=== PATIENT | female | born 1960 | race Caucasian/White ===

== ENCOUNTER 2023-04-08 10:13 | Outpatient (CLI) | payer MEDICAID ==
--- NOTE | 2023-04-09 09:51 | Mammography Report ---
BILATERAL DIGITAL SCREENING MAMMOGRAM 3D/2D: 04/08/2023 CLINICAL: Routine screening. Comparison is made to exam dated: 04/19/2009 mammogram - [facility]. There are scattered areas of fibroglandular density in both breasts (category b / 25%-50% glandular t issue). No significant masses, calcifications, or other findings are seen in either breast. There has been no significant interval change. IMPRESSION: NEGATIVE There is no mammographic evidence of malignancy. A 1 year screening mammogram is recommended. Based on the Tyrer Cuzick model (a risk assessment model) the patients lifetime risk is 3.8% and her 10 year risk is 1.5%. According to the ACR, ACS, and NCCN guidelines, an annual breast MRI exam ariella g with mammogram is recommended if the patients lifetime risk is 20% or greater. This exam was interpreted at Station ID: [id number]. NOTE: For mammograms, a report in lay terms will be sent to the patient. Approximately 15% of breast malignancies will not be visualized mammographically. In the management of a palpable breast mass, a negative mammogram must not discourage biopsy of a clinically suspicious lesion. Electronically Signed By: Rachna barcenas/leti:04/08/2023 16:18:37 letter sent: No_Letter ACR BI-RADS Category 1: Negative 3341F PARENCHYMAL PATTERN: (A) - The breast(s) demonstrate(s) scattered fibroglandular densities. BI-RADS CATEGORY: (1) - 1 Mammogram [id number] 1 year screening LATERALITY: (B)
== END 2023-04-08 10:14 | disposition home or self-care (01) ==
LOC: DI.N 10:13
PROVIDERS: ATTEND Nurse Practitioner
DX: Z12.31 Encounter for screening mammogram for malignant neoplasm of breast (principal)

== ENCOUNTER 2023-04-08 10:19 | Outpatient (CLI) | payer MEDICAID ==
[2023-04-08 12:19] LABS: BASOPHILS # (AUTO) 0.1 10^3/uL (0.0-0.1); BASOPHILS % (AUTO) 1.4 %; EOSINOPHILS # (AUTO) 0.2 10^3/uL (0.0-0.7); EOSINOPHILS % (AUTO) 2.4 %; HCT - HEMATOCRIT 45.8 % (37.0-47.0); HGB - HEMOGLOBIN 15.7 g/dL (12.0-16.0); LYMPHOCYTES # (AUTO) 2.5 10^3/uL (1.5-3.5); LYMPHOCYTES % (AUTO) 29.7 %; MEAN CORPUSCULAR HGB CONC 34.3 g/dL (32.0-36.0); MEAN CORPUSCULAR VOLUME 102.2 fL (81.0-99.0); MEAN PLATELET VOLUME 9.2 fL (7.9-10.8); MONOCYTES # (AUTO) 0.6 10^3/uL (0.0-1.0); MONOCYTES % (AUTO) 6.8 %; NEUTROPHILS % (AUTO) 59.2 %; PLT - PLATELET COUNT 252 10^3/uL (130-450); RED BLOOD COUNT 4.48 10^6/uL (4.20-5.40); RED CELL DISTRIBUTION WIDTH 13.2 % (12.0-15.0); WHITE BLOOD COUNT 8.4 x10^3/uL (4.8-10.8)
[2023-04-08 12:42] LABS: THYROID STIMULATING HORMONE 7.39 uIU/mL (0.34-5.60)
[2023-04-08 12:44] LABS: ALBUMIN/GLOBULIN RATIO 1.2 (1.0-2.2); ALKALINE PHOSPHATASE 69 IU/L (42-121); ALT ALANINE AMINOTRANSFERASE 16 IU/L (10-60); AST ASPARTATE AMINOTRANSFERASE 22 IU/L (10-42); BILIRUBIN,TOTAL 0.4 mg/dL (0.2-1.0); BUN - BLOOD UREA NITROGEN 21 mg/dL (6-20); CALCIUM 9.6 mg/dL (8.5-10.3); CARBON DIOXIDE - CO2 21 mmol/L (21-32); CHLORIDE 106 mmol/L (101-111); CHOL/HDL RATIO 4.3 (<4.4); CHOLESTEROL 207 mg/dL; GFR - MDRD 56 (>89); GLUCOSE 121 mg/dL (74-104); HDL CHOLESTEROL 48 mg/dL; LDL CHOLESTEROL,CALCULATED 113 mg/dL; LDL/HDL RATIO 2.4 (<4.4); SODIUM 133 mmol/L (135-145); TOTAL PROTEIN 7.4 g/dL (6.4-8.9); TRIGLYCERIDES 232 mg/dL (48-352); VLDL CHOLESTEROL 46 mg/dL
== END 2023-04-08 10:20 | disposition home or self-care (01) ==
LOC: LAB.N 10:19
PROVIDERS: ATTEND Nurse Practitioner
DX: I10 Essential (primary) hypertension (principal); Z13.220 Encounter for screening for lipoid disorders; Z12.11 Encounter for screening for malignant neoplasm of colon; R53.83 Other fatigue
CPT/HCPCS: 36415; 80053; 80061; 82607; 83721; 84439; 84443; 85025

== ENCOUNTER 2023-06-11 15:25 | Emergency (ER) | payer MEDICAID ==
[2023-06-11 15:38] VITALS: O2SAT 98
--- NOTE | 2023-06-11 16:25 | XRAY Report ---
PROCEDURE: Chest 2 View X-Ray INDICATIONS: cough with pain TECHNIQUE: 2 views of the chest were acquired. COMPARISON: None. FINDINGS: Surgical changes and devices: None. Lungs and pleura: No pleural effusions or pneumothorax. Linear scarring/atelectasis in lateral aspe ct of left lower lung field is seen. Mediastinum: Mediastinal contours appear normal. Heart size is normal. Bones and chest wall: No suspicious bony lesions. Overlying soft tissues appear unremarkable. IMPRESSION: Linear scarring/atelectasis in lateral aspect of left lower lung field. No focal infiltrate, pleural effusion or pneumothorax. Reviewed by: Xavier Welch MD on 06/11/2023 4:24 PM PDT Approved by: Xavier Welch MD on 06/11/2023 4:24 PM PDT Station ID: [id number]
[2023-06-11] MEDS ORDERED: BENZONATATE 100 MG CAPSULE PO STA (17:42)
--- NOTE | 2023-06-11 17:44 | ED Physician Documentation ---
History of Present Illness - Stated complaint Stated Complaint: COUGH,RIB PAIN - Chief complaint Chief Complaint: Resp - History obtained from History obtained from: Patient - Additonal information Additional information: 62-year-old woman is a heavy smoker but no history of COPD. She is been coughing for 2 weeks and during coughing a few days ago developed some pain in the upper abdomen. She went to the walk-in clinic and they noticed some bruising on her upper abdomen and she was referred here for concern for hernia. She has not been vomiting. She is moving her bowels okay. 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 - Present Medications Home Medications: Ambulatory Orders Medication Instructions Recorded Confirmed Clindamycin HCl [Clindamycin 150MG 150 mg PO Q6HR #28 capsule 01/19/16 CAP] Benzonatate [Tessalon] 200 mg PO TID PRN #20 cap 06/11/23 Doxycycline [Vibramycin] 100 mg PO BID #14 tablet 06/11/23 predniSONE [Deltasone] 20 mg PO [id number] #21 tab 06/11/23 - Allergies Allergies/Adverse Reactions: Allergies Allergy/AdvReac Type Severity Reaction Status Date / Time aspirin AdvReac Itching Verified 01/19/16 14:55 - Social History Does the pt smoke?: Yes Smoking Status: Current every day smoker Does the pt drink ETOH?: Yes Does the pt have substance abuse?: No - Immunizations Immunizations are current?: No Immunizations: TDAP >10years/unknown - POLST Patient has POLST: No PD ED PE NORMAL - Vitals Vital signs reviewed: Yes - General General: Alert and oriented X 3, Other (Smells heavily of cigarette smoke with frequent coughing) - Cardiac Cardiac: RRR, No murmur - Respiratory Respiratory: Other (Rhonchorous lungs throughout without respiratory distress. She does have a frequent cough though.) - Abdomen Abdomen: Other (There is a palm sized bruise a few centimeters above the umbilicus without underlying mass or tenderness.) - Neuro Neuro: Alert and oriented X 3, Normal speech Results - Vitals Vitals: Vital Signs - 24 hr 06/11/23 06/11/23 06/11/23 15:30 15:33 17:33 Temperature 36.2 C L 36.5 C Heart Rate 83 83 80 Respiratory 18 18 16 Rate Blood Pressure 132/75 H 132/75 H 128/72 O2 Saturation 98 98 98 Oxygen O2 Source Room air - Rads (name of study) CT of the abdomen pelvis demonstrates a rectus sheath hematoma. Radiologist gave a differential but this fits the clinical circumstances. Relevant Findings:: Final report received, EMP independent interpretation of test PD Medical Decision Making - ED course ED course: 62-year-old woman who has no history of pulmonary disease but I suspect may have underlying undiagnosed COPD presents with coughing and then she developed a bruise on the abdomen. Sent here by the walk-in clinic for concern for hernia, although there is no hernia present on exam. There is a rectus sheath hematoma from the coughing on CT and the generally conservative nature and follow-up of this was discussed with the patient and she will be treated for likely COPD flare with steroids, antibiotics. Departure - Departure Disposition: 01 Home, Self Care Clinical Impression: Bronchitis, Rectus sheath hematoma Condition: Good Record reviewed to determine appropriate education?: Yes Instructions: ED Upper Resp Infec Abx Tx Prescriptions: predniSONE [Deltasone] 20 mg PO [id number] #21 tab Benzonatate [Tessalon] 200 mg PO TID PRN #20 cap PRN Reason: Cough Doxycycline [Vibramycin] 100 mg PO BID #14 tablet Comments: From the coughing, you have a rectus sheath hematoma. This is just spontaneously blood in the abdominal musculature. It is not dangerous, but I am giving you some medications to slow down the coughing and you can also take Tylenol for the pain. If the radiologist sees something on the CAT scan which I do not, I will call you. Return for new or worsening symptoms. You follow-up with your primary care physician. If you were to continue to have pulmonary issues, there would be a concern for something like COPD or emphysema and you should also discuss this with your primary care physician. Forms: PCP List Discharge Date/Time: 06/11/23 19:47
[2023-06-11 17:45] VITALS: BP 128/72
[2023-06-11] MEDS ORDERED: predniSONE 20 MG TABLET PO STA (19:37)
[2023-06-11] MEDS ORDERED: DOXYCYCLINE 100 MG TABLET PO STA (19:37)
--- NOTE | 2023-06-11 20:08 | CT Report ---
PROCEDURE: ABDOMEN/PELVIS WO INDICATIONS: abd pain, ? Hernia anterior TECHNIQUE: A CT scan of the abdomen and pelvis was performed without the use of intravenous contrast. Images we re recorded and evaluated at appropriate window settings. Reformats: coronal and sagittal. For radiat ion dose reduction, the following was used: automated exposure control, adjustment of mA and/or kV ac cording to patient size. COMPARISON: None. FINDINGS: Image quality: Excellent. Evaluation of the solid parenchymal organs is limited without IV contrast. Lung bases and heart: No pleural effusions. Small hiatal hernia. Coronary artery calcifications. Liver: Small hypodensity in the inferior left lobe of liver, (2/38). Gallbladder and biliary tree: No radiopaque stones or wall thickening. No biliary dilation. Spleen: No splenomegaly. Pancreas: No pancreatic ductal dilation. Adrenals: No adrenal nodule. Kidneys and ureters: No hydronephrosis. No kidney stones. Bowel and peritoneum: Diverticulosis. No diverticulitis. Normal appendix. No small bowel obstruction. Stomach is within normal limits. No hernia. Lymph nodes: No central or retroperitoneal adenopathy. Vessels: No infrarenal aortic aneurysm. PELVIS Reproductive organs: Retroverted uterus. Bladder: No stone. Pelvic lymph nodes: No pelvic adenopathy by size criteria. Bones: No aggressive osseous abnormality. Bilateral L5 pars defect. Anterolisthesis of L5 on S1 measu ring 0.7 cm. Other: Symmetric increased density and thickening in the left ventral abdominal wall measuring approx imately 4.5 x 3.2 cm, (2/49). No hernia. IMPRESSION: 1. Left ventral abdominal wall thickening and increased density. Suspect rectus sheath hematoma. Diff icult to exclude underlying neoplasm such as desmoid tumor. Recommend follow-up CT with IV contrast o r follow-up abdominal wall ultrasound. 2. Diverticulosis. No diverticulitis. 3. No kidney stones. No hydronephrosis. 4. Small hiatal hernia. Reviewed by: Eduardo Anne MD on 06/11/2023 8:07 PM PDT Approved by: Eduardo Anne MD on 06/11/2023 8:07 PM PDT Station ID: [id number]
== END 2023-06-11 19:47 | disposition home or self-care (01) ==
LOC: ED 15:25
DX: S30.1XXA Contusion of abdominal wall, initial encounter (principal); X58.XXXA Exposure to other specified factors, initial encounter; J40 Bronchitis, not specified as acute or chronic; F17.210 Nicotine dependence, cigarettes, uncomplicated
CPT/HCPCS: 71046; 74176; 99284; A9270; J7512